=== PATIENT | female | born 2005 | race Two or more races ===

== ENCOUNTER 2024-10-10 13:02 | Outpatient (RCR) | payer MEDICAID, SELFPAY | END 2024-11-02 23:59 | disposition home or self-care (01) | LOC: SCTC 13:02 | PROVIDERS: PCP Family Medicine; Referring Provider Family Medicine; Visit Provider Nurse Practitioner Family | DX: D64.9 Anemia, unspecified (principal); Z87.898 Personal history of other specified conditions | CPT/HCPCS: 99213; G0463 ==

== ENCOUNTER 2024-11-16 08:45 | Outpatient (RCR) | payer MEDICAID, SELFPAY | END 2024-12-03 23:59 | disposition home or self-care (01) | LOC: SCTC 08:45 | PROVIDERS: PCP Family Medicine; Referring Provider Family Medicine; Visit Provider Nurse Practitioner Family | DX: Z76.89 Persons encountering health services in other specified circumstances (principal); Z87.898 Personal history of other specified conditions; Z86.2 Personal history of diseases of the blood and blood-forming organs and certain disorders involving the immune mechanism | CPT/HCPCS: 99212; G0463 ==

== ENCOUNTER 2025-01-16 13:04 | Outpatient (RCR) | payer MEDICAID, SELFPAY | END 2025-02-02 23:59 | disposition home or self-care (01) | LOC: SCTC 13:04 | PROVIDERS: PCP Family Medicine; Referring Provider Family Medicine; Visit Provider Nurse Practitioner Family | DX: E61.1 Iron deficiency (principal); R04.0 Epistaxis | CPT/HCPCS: 99212; G0463 ==